=== PATIENT | female | born 1930 | race Two or more races ===

== ENCOUNTER 2020-07-21 21:27 | Emergency (ER) | payer MEDICARE, OTHER ==
[~2020-07-21] VITALS: Ht 165.1 cm; Wt 53.0 kg
[~2020-07-21 21:27] MED LIST: AMLO5TAB88 PO; CLON-457 PO; QUET100T PO; TRAM50TA3 PO
[2020-07-21] MEDS ORDERED: SODIUM CHLORIDE 0.9% 1,000 ML IV ONE (22:45)
[2020-07-21 23:43] LABS: BASOPHILS % 0.5 % (0.0-2.0); EOSINOPHILS % 0.3 % (0.0-5.0); HEMATOCRIT. 31.7 % (36.0-48.0); LYMPHOCYTES % 21.4 % (20.0-50.0); MEAN CORPUSCULAR HEMOGLOBIN 22.2 pg (28.0-32.0); MEAN CORPUSCULAR VOLUME 70.1 fL (81.0-99.0); MEAN PLATELET VOLUME 10.6 fl (7.4-10.4); MONOCYTES % 13.1 % (2.0-8.0); NEUTROPHILS % 64.7 % (40.0-76.0); PLATELET 141 x1000/uL (130-400); RED BLOOD CELL COUNT 4.52 mill/uL (4.2-5.4); RED CELL DISTRIBUTION WIDTH 17.2 % (11.6-14.6)
[2020-07-21 23:46] LABS: CHLORIDE 110 mEq/L (98-107)
[2020-07-22 01:19] VITALS: BP 137/66
== END 2020-07-22 01:22 | disposition home or self-care (01) ==
LOC: ER 21:27
DX: I95.9 Hypotension, unspecified (principal); E86.0 Dehydration; I10 Essential (primary) hypertension; R53.1 Weakness; F03.90 Unspecified dementia, unspecified severity, without behavioral disturbance, psychotic disturbance, mood disturbance, and anxiety
CPT/HCPCS: 36415; 71045; 80053; 82962; 83605; 83880; 84484; 85025; 85610; 93005; 96360; 99285; J7030

== ENCOUNTER 2020-07-23 09:23 | Inpatient (IN) | payer MEDICARE, OTHER ==
[2020-07-23] VITALS (19 sets, daily range): BP systolic 123–184; BP diastolic 49–123
[~2020-07-23] VITALS: Ht 152.4 cm; Wt 68.5 kg
[2020-07-23] MEDS ORDERED: MORPHINE SULFATE 4 MG/ML CPJ (NOT FOR IM USE) IV STA (10:22)
[2020-07-23] MEDS ORDERED: ONDANSETRON HCL 4MG/2ML INJ IV STA (10:22)
[2020-07-23] MEDS ORDERED: SODIUM CHLORIDE 0.9% 1,000 ML IV ONE (10:30)
[2020-07-23 10:32] LABS: BASOPHILS % 0.5 % (0.0-2.0); EOSINOPHILS % 0.2 % (0.0-5.0); HEMATOCRIT. 42.1 % (36.0-48.0); HEMOGLOBIN. 13.5 g/dL (12.0-16.0); LYMPHOCYTES % 16.8 % (20.0-50.0); MEAN CORPUSCULAR HEMOGLOBIN 22.2 pg (28.0-32.0); MEAN CORPUSCULAR VOLUME 69.4 fL (81.0-99.0); MEAN PLATELET VOLUME 11.1 fl (7.4-10.4); MONOCYTES % 5.8 % (2.0-8.0); NEUTROPHILS % 76.7 % (40.0-76.0); PLATELET 213 x1000/uL (130-400); RED BLOOD CELL COUNT 6.07 mill/uL (4.2-5.4); RED CELL DISTRIBUTION WIDTH 17.2 % (11.6-14.6)
[2020-07-23 10:34] LABS: CHLORIDE 98 mEq/L (98-107)
[2020-07-23 11:20] LABS: PARTIAL THROMBOPLASTIN TIME 27.6 sec (23.4-31.0); PROTHROMBIN TIME 10.8 sec (9.6-11.0)
[2020-07-23 11:40] LABS: PLATELET ESTIMATE NORMAL
[2020-07-23] MEDS ORDERED: LEVOFLOXACIN 750MG PREMIX 150 ML IV ONE (13:30)
[2020-07-23] MEDS ORDERED: METRONIDAZOLE 500 MG PREMIX 100 ML IV ONE (13:30)
[2020-07-23] MEDS ORDERED: MORPHINE SULFATE 4 MG/ML CPJ (NOT FOR IM USE) IV ONE (14:30)
[2020-07-23] MEDS: DOCUSATE SODIUM 250MG CAPSULE PO SCH (14:45)
[2020-07-23] MEDS ORDERED: BISACODYL 10MG SUPP PR PRN (14:45)
[2020-07-23] MEDS ORDERED: MORPHINE SULFATE 2 MG/ML CPJ (NOT FOR IM USE) IV PRN (14:45)
[2020-07-23] MEDS ORDERED: OMEPRAZOLE 20MG CAPSULE EXTENDED RELEASE PO SCH (14:45)
[2020-07-23] MEDS ORDERED: BISACODYL 10MG SUPP PR NR (14:45)
[2020-07-23] MEDS ORDERED: DEXT 5%/0.9% NACL 1,000 ML IV SCH (14:45)
[2020-07-23] MEDS: LOSARTAN POTASSIUM 100 MG TABLET PO SCH (14:45)
[2020-07-23] MEDS ORDERED: CLONIDINE 0.1MG TABLET PO PRN (14:45)
[2020-07-23] MEDS: RISPERIDONE 0.5MG TABLET PO SCH (15:30)
[2020-07-23] MEDS: AMLODIPINE 10MG TABLET PO SCH (15:32)
[2020-07-23 15:46] LABS: CLARITY URINE CLOUDY (CLEAR); COLOR URINE YELLOW (YELLOW); KETONES URINE NEGATIVE (NEGATIVE); LEUKOCYTE ESTERASE URINE 2+ (NEGATIVE); NITRITE URINE NEGATIVE (NEGATIVE); OCCULT BLOOD URINE 2+ (NEGATIVE); PROTEIN URINE 2+ (NEGATIVE); SPECIFIC GRAVITY URINE 1.013 (1.005-1.030); UROBILINOGEN URINE 0.2 E.U./dL (0.2-1.0)
[2020-07-23] MEDS ORDERED: NICARDIPINE 50 MG in SODIUM CHLORIDE 0.9% 230 ML IV PRN (17:15)
[2020-07-23] MEDS: DEXT 5%/LACTATED RINGERS 1,000 ML IV SCH ×2 (17:28→21:47)
[2020-07-23] MEDS: POLYETHYLENE GLYCOL 3350 (17GM) 1 DOSE PACK PO SCH (17:45)
[2020-07-23] MEDS: HYDRALAZINE HCL 100MG TABLET PO SCH (18:14)
[2020-07-23] MEDS: DEXAMETHASONE 4MG/ML 1ML VIAL IV SCH ×2 (18:15→23:44)
[2020-07-23] MEDS ORDERED: NICARDIPINE 100 MG in SODIUM CHLORIDE 0.9% 60 ML IV PRN ×2 (18:30→21:15)
[2020-07-23] MEDS: NICARDIPINE 100 MG in SODIUM CHLORIDE 0.9% 60 ML IV PRN (21:48)
[2020-07-23] MEDS: METRONIDAZOLE 500 MG PREMIX 100 ML IV SCH (22:02)
[2020-07-24] VITALS (87 sets, daily range): BP systolic 104–151; BP diastolic 45–101
[2020-07-24] MEDS: HYDRALAZINE HCL 100MG TABLET PO SCH ×3 (01:24→17:11)
[2020-07-24] MEDS: DEXAMETHASONE 4MG/ML 1ML VIAL IV SCH ×3 (05:11→17:14)
[2020-07-24] MEDS: METRONIDAZOLE 500 MG PREMIX 100 ML IV SCH ×3 (05:42→21:42)
[2020-07-24 05:45] LABS: HEMATOCRIT. 36.7 % (36.0-48.0); HEMOGLOBIN. 11.3 g/dL (12.0-16.0); MEAN CORPUSCULAR HEMOGLOBIN 21.5 pg (28.0-32.0); MEAN CORPUSCULAR VOLUME 69.6 fL (81.0-99.0); MEAN PLATELET VOLUME 9.7 fl (7.4-10.4); PLATELET 190 x1000/uL (130-400); RED BLOOD CELL COUNT 5.27 mill/uL (4.2-5.4); RED CELL DISTRIBUTION WIDTH 16.9 % (11.6-14.6)
[2020-07-24 05:50] LABS: CHLORIDE 101 mEq/L (98-107)
[2020-07-24 05:53] LABS: INR 1.1; PARTIAL THROMBOPLASTIN TIME 26.4 sec (23.4-31.0); PROTHROMBIN TIME 11.3 sec (9.6-11.0)
[2020-07-24] MEDS ORDERED: BACITRACIN 15GM TUBE TOP ONE (06:28)
[2020-07-24] MEDS ORDERED: BACITRACIN 50,000 UNITS/VIAL ONE ×2 (06:28→06:29)
[2020-07-24] MEDS ORDERED: THROMBIN (BOVINE) 5000 UNITS/VIAL TOP ONE (06:28)
[2020-07-24] MEDS ORDERED: SODIUM CHLORIDE 0.9% 10ML VIAL ONE ×2 (07:56→08:01)
[2020-07-24] MEDS ORDERED: EPHEDRINE SULFATE 50MG/ML VIAL ONE (07:56)
[2020-07-24] MEDS ORDERED: LIDOCAINE HCL/PF 1% 10 MG/ML 5ML VIAL ONE (07:56)
[2020-07-24] MEDS ORDERED: FENTANYL CITRATE/PF 50MCG/ML 2ML VIAL ONE (07:56)
[2020-07-24] MEDS ORDERED: DEXAMETHASONE 4MG/ML 1ML VIAL ONE (07:56)
[2020-07-24] MEDS ORDERED: PROPOFOL 200MG/20ML VIAL IV ONE (07:56)
[2020-07-24] MEDS ORDERED: ROCURONIUM BROMIDE 10MG/ML VIAL 5ML IV ONE ×2 (07:56→09:33)
[2020-07-24] MEDS ORDERED: CEFAZOLIN SODIUM 1000MG/VIAL ONE (07:56)
[2020-07-24] MEDS ORDERED: PHENYLEPHRINE HCL 10 MG/ML 1ML (IV VIAL) IV ONE (07:57)
[2020-07-24] MEDS ORDERED: ONDANSETRON HCL 4MG/2ML INJ ONE (08:00)
[2020-07-24] MEDS ORDERED: LIDOCAINE HCL 2% JELLY 5ML ONE (08:27)
[2020-07-24] MEDS ORDERED: DEXT 5%/LACTATED RINGERS 1,000 ML IV SCH (08:45)
[2020-07-24] MEDS: DOCUSATE SODIUM 250MG CAPSULE PO SCH (09:00)
[2020-07-24] MEDS: LOSARTAN POTASSIUM 100 MG TABLET PO SCH (09:00)
[2020-07-24] MEDS: POLYETHYLENE GLYCOL 3350 (17GM) 1 DOSE PACK PO SCH (09:00)
[2020-07-24] MEDS: AMLODIPINE 10MG TABLET PO SCH (09:00)
[2020-07-24] MEDS: RISPERIDONE 0.5MG TABLET PO SCH (09:00)
[2020-07-24 11:34] LABS: PLATELET ESTIMATE NORMAL
[2020-07-24] MEDS ORDERED: LEVOFLOXACIN 500MG PREMIX 100 ML IV SCH ×2 (12:00→13:30)
[2020-07-24] MEDS: PANTOPRAZOLE SODIUM 40 MG/VIAL IV SCH (12:32)
[2020-07-24] MEDS: DEXT 5%/LACTATED RINGERS 1,000 ML IV SCH (12:33)
[2020-07-24 13:04] LABS: BG CARBOXYHEMOGLOBIN 0.1 % (0.5-1.5); BG DEOXYHEMOGLOBIN 0.8 % (0.0-5.0); BG FRACTION INSPIRED OXYGEN 40; BG HCO3 ACT 22.2 mmol/L (22.0-26.0); BG METHEMOGLOBIN 0.3 % (0.0-1.5); BG OXYGEN SATURATION 99.2 % (92.0-98.5); BG OXYHEMOGLOBIN 98.8 % (94.0-97.0); BG PCO2 28.2 mmHg (35.0-45.0); BG PH 7.514 (7.350-7.450); BG PO2 193.4 mmHg (75.0-100.0); BG SAMPLE SITE RIGHT RADIAL; BG TOTAL HEMOGLOBIN 10.6 g/dL (12.0-18.0); BG VENT MODE VENT - AC
[2020-07-24] MEDS ORDERED: CEFAZOLIN SODIUM 1000MG/VIAL IV SCH (14:00)
[2020-07-24] MEDS: CEFAZOLIN 1000MG PREMIX 50 ML IV SCH ×2 (15:15→21:41)
[2020-07-24] MEDS: MORPHINE SULFATE 2 MG/ML CPJ (NOT FOR IM USE) IV PRN (17:15)
[2020-07-24] MEDS: PROPOFOL 10MG/ML 100ML 100 ML IV PRN (18:33)
[2020-07-25] VITALS (94 sets, daily range): BP systolic 100–150; BP diastolic 44–108
[2020-07-25] MEDS: DEXAMETHASONE 4MG/ML 1ML VIAL IV SCH ×4 (01:09→17:21)
[2020-07-25] MEDS: DEXT 5%/LACTATED RINGERS 1,000 ML IV SCH ×3 (01:12→21:08)
[2020-07-25] MEDS: HYDRALAZINE HCL 100MG TABLET PO SCH ×3 (01:15→17:21)
[2020-07-25] MEDS: MORPHINE SULFATE 2 MG/ML CPJ (NOT FOR IM USE) IV PRN ×2 (01:22→21:00)
[2020-07-25] MEDS: NICARDIPINE 100 MG in SODIUM CHLORIDE 0.9% 60 ML IV PRN ×3 (02:01→23:40)
[2020-07-25] MEDS: CEFAZOLIN 1000MG PREMIX 50 ML IV SCH ×3 (05:13→21:00)
[2020-07-25] MEDS: METRONIDAZOLE 500 MG PREMIX 100 ML IV SCH ×3 (05:13→21:00)
[2020-07-25 05:36] LABS: HEMATOCRIT. 30.3 % (36.0-48.0); HEMOGLOBIN. 9.5 g/dL (12.0-16.0); MEAN CORPUSCULAR HEMOGLOBIN 21.5 pg (28.0-32.0); MEAN CORPUSCULAR VOLUME 68.3 fL (81.0-99.0); MEAN PLATELET VOLUME 9.7 fl (7.4-10.4); PLATELET 231 x1000/uL (130-400); RED BLOOD CELL COUNT 4.43 mill/uL (4.2-5.4); RED CELL DISTRIBUTION WIDTH 16.8 % (11.6-14.6)
[2020-07-25 05:45] LABS: CHLORIDE 104 mEq/L (98-107)
[2020-07-25 08:09] LABS: PLATELET ESTIMATE NORMAL
[2020-07-25 08:34] LABS: BG BASE EXCESS -1.6 mmol/L (-2.0-2.0); BG CARBOXYHEMOGLOBIN 0.3 % (0.5-1.5); BG DEOXYHEMOGLOBIN 0.6 % (0.0-5.0); BG FRACTION INSPIRED OXYGEN 40; BG HCO3 ACT 20.8 mmol/L (22.0-26.0); BG METHEMOGLOBIN 0.3 % (0.0-1.5); BG OXYGEN SATURATION 99.4 % (92.0-98.5); BG OXYHEMOGLOBIN 98.8 % (94.0-97.0); BG PCO2 27.6 mmHg (35.0-45.0); BG PH 7.495 (7.350-7.450); BG PO2 223.7 mmHg (75.0-100.0); BG SAMPLE SITE RIGHT BRACHIAL; BG VENT MODE VENT - AC
[2020-07-25] MEDS: DOCUSATE SODIUM 250MG CAPSULE PO SCH (09:00)
[2020-07-25] MEDS: POLYETHYLENE GLYCOL 3350 (17GM) 1 DOSE PACK PO SCH (09:00)
[2020-07-25] MEDS: LOSARTAN POTASSIUM 100 MG TABLET PO SCH (09:00)
[2020-07-25] MEDS: AMLODIPINE 10MG TABLET PO SCH (09:00)
[2020-07-25] MEDS: RISPERIDONE 0.5MG TABLET PO SCH (09:00)
[2020-07-25] MEDS: PANTOPRAZOLE SODIUM 40 MG/VIAL IV SCH (10:00)
[2020-07-25] MEDS ORDERED: IPRATROPIUM/ALBUTEROL 0.5-3(2.5)MG/3ML NEB HHN PRN (10:30)
[2020-07-25] MEDS ORDERED: PROPOFOL 10MG/ML 100ML 100 ML IV PRN (10:30)
[2020-07-25] MEDS: PROPOFOL 10MG/ML 100ML 100 ML IV PRN ×2 (10:51→22:14)
[2020-07-25] MEDS: LEVOFLOXACIN 250MG PREMIX 50 ML IV SCH (14:06)
[2020-07-25] MEDS: IPRATROPIUM/ALBUTEROL 0.5-3(2.5)MG/3ML NEB HHN SCH (20:28)
[2020-07-26] VITALS (137 sets, daily range): BP systolic 101–149; BP diastolic 43–81
[2020-07-26] MEDS: HYDRALAZINE HCL 100MG TABLET PO SCH ×3 (02:00→18:07)
[2020-07-26] MEDS: IPRATROPIUM/ALBUTEROL 0.5-3(2.5)MG/3ML NEB HHN SCH ×4 (02:00→20:48)
[2020-07-26] MEDS: CEFAZOLIN 1000MG PREMIX 50 ML IV SCH (05:20)
[2020-07-26] MEDS: METRONIDAZOLE 500 MG PREMIX 100 ML IV SCH ×3 (05:20→21:03)
[2020-07-26 05:43] LABS: HEMATOCRIT. 24.2 % (36.0-48.0); HEMOGLOBIN. 7.9 g/dL (12.0-16.0); MEAN CORPUSCULAR HEMOGLOBIN 22.2 pg (28.0-32.0); MEAN CORPUSCULAR VOLUME 68.3 fL (81.0-99.0); MEAN PLATELET VOLUME 9.5 fl (7.4-10.4); PLATELET 195 x1000/uL (130-400); RED BLOOD CELL COUNT 3.54 mill/uL (4.2-5.4); RED CELL DISTRIBUTION WIDTH 16.5 % (11.6-14.6)
[2020-07-26 06:11] LABS: FOLIC ACID (FOLATE) SERUM 6.7 ng/mL (>5.38)
[2020-07-26] MEDS: PROPOFOL 10MG/ML 100ML 100 ML IV PRN ×2 (06:36→13:28)
[2020-07-26] MEDS: LOSARTAN POTASSIUM 100 MG TABLET PO SCH (09:00)
[2020-07-26] MEDS: RISPERIDONE 0.5MG TABLET PO SCH (09:00)
[2020-07-26] MEDS: AMLODIPINE 10MG TABLET PO SCH (09:00)
[2020-07-26] MEDS: PANTOPRAZOLE SODIUM 40 MG/VIAL IV SCH ×2 (09:20→21:04)
[2020-07-26] MEDS: LABETALOL 5MG/ML SYR 20 MG/4 ML SYRINGE IV PRN (09:21)
[2020-07-26] MEDS ORDERED: NITROPRUSSIDE 50 MG in SODIUM CHLORIDE 0.9% 250 ML IV PRN (09:30)
[2020-07-26 09:38] LABS: BG BASE EXCESS -6.8 mmol/L (-2.0-2.0); BG CARBOXYHEMOGLOBIN 0.3 % (0.5-1.5); BG DEOXYHEMOGLOBIN 1.1 % (0.0-5.0); BG FRACTION INSPIRED OXYGEN 40; BG METHEMOGLOBIN 0.5 % (0.0-1.5); BG OXYGEN SATURATION 98.9 % (92.0-98.5); BG OXYHEMOGLOBIN 98.1 % (94.0-97.0); BG PCO2 23.6 mmHg (35.0-45.0); BG PO2 188.5 mmHg (75.0-100.0); BG SAMPLE SITE RIGHT RADIAL; BG TOTAL HEMOGLOBIN 8.6 g/dL (12.0-18.0); BG VENT MODE VENT - AC
[2020-07-26] MEDS: LEVOFLOXACIN 250MG PREMIX 50 ML IV SCH (11:31)
[2020-07-26] MEDS: DEXT 5%/LACTATED RINGERS 1,000 ML IV SCH ×2 (11:56→15:15)
[2020-07-26 13:11] LABS: PLATELET ESTIMATE NORMAL
[2020-07-26 15:13] LABS: BG BASE EXCESS -3.1 mmol/L (-2.0-2.0); BG CARBOXYHEMOGLOBIN 0.3 % (0.5-1.5); BG DEOXYHEMOGLOBIN 0.7 % (0.0-5.0); BG FRACTION INSPIRED OXYGEN 40; BG HCO3 ACT 19.7 mmol/L (22.0-26.0); BG METHEMOGLOBIN 0.4 % (0.0-1.5); BG OXYGEN SATURATION 99.3 % (92.0-98.5); BG OXYHEMOGLOBIN 98.6 % (94.0-97.0); BG PCO2 27.5 mmHg (35.0-45.0); BG PH 7.473 (7.350-7.450); BG PO2 211.2 mmHg (75.0-100.0); BG SAMPLE SITE RIGHT RADIAL; BG TOTAL HEMOGLOBIN 9.6 g/dL (12.0-18.0); BG VENT MODE VENT - CPAP
[2020-07-26] MEDS: CEFTRIAXONE 1,000 MG in DEXTROSE 5% WATER 50 ML IV SCH (15:46)
[2020-07-26] MEDS: MORPHINE SULFATE 2 MG/ML CPJ (NOT FOR IM USE) IV PRN (17:10)
[2020-07-26] MEDS: METOCLOPRAMIDE HCL 10MG/2ML VIAL IV SCH ×2 (18:07→23:19)
[2020-07-27] VITALS (110 sets, daily range): BP systolic 97–158; BP diastolic 39–93
[2020-07-27] MEDS: PROPOFOL 10MG/ML 100ML 100 ML IV PRN ×2 (00:12→11:48)
[2020-07-27] MEDS: DEXT 5%/LACTATED RINGERS 1,000 ML IV SCH ×3 (01:00→20:49)
[2020-07-27] MEDS: HYDRALAZINE HCL 100MG TABLET PO SCH ×3 (03:05→18:02)
[2020-07-27] MEDS: IPRATROPIUM/ALBUTEROL 0.5-3(2.5)MG/3ML NEB HHN SCH ×4 (04:39→20:18)
[2020-07-27] MEDS: METRONIDAZOLE 500 MG PREMIX 100 ML IV SCH ×3 (05:21→20:49)
[2020-07-27] MEDS: METOCLOPRAMIDE HCL 10MG/2ML VIAL IV SCH ×3 (05:21→18:02)
[2020-07-27 05:57] LABS: CHLORIDE 110 mEq/L (98-107)
[2020-07-27 06:00] LABS: HEMATOCRIT. 27.9 % (36.0-48.0); HEMOGLOBIN. 8.9 g/dL (12.0-16.0); MEAN CORPUSCULAR HEMOGLOBIN 21.8 pg (28.0-32.0); MEAN CORPUSCULAR VOLUME 68.2 fL (81.0-99.0); MEAN PLATELET VOLUME 8.9 fl (7.4-10.4); PLATELET 261 x1000/uL (130-400); RED BLOOD CELL COUNT 4.09 mill/uL (4.2-5.4); RED CELL DISTRIBUTION WIDTH 16.9 % (11.6-14.6)
[2020-07-27] MEDS ORDERED: LIDOCAINE HCL 1% 20ML VIAL (Pyxis) INJ ONE (08:19)
[2020-07-27 09:00] LABS: BG BASE EXCESS -1.4 mmol/L (-2.0-2.0); BG CARBOXYHEMOGLOBIN 0.2 % (0.5-1.5); BG DEOXYHEMOGLOBIN 0.8 % (0.0-5.0); BG HCO3 ACT 20.9 mmol/L (22.0-26.0); BG METHEMOGLOBIN 0.5 % (0.0-1.5); BG OXYGEN SATURATION 99.2 % (92.0-98.5); BG OXYHEMOGLOBIN 98.5 % (94.0-97.0); BG PCO2 27.1 mmHg (35.0-45.0); BG PH 7.506 (7.350-7.450); BG PO2 221.4 mmHg (75.0-100.0); BG SAMPLE SITE RIGHT BRACHIAL; BG TOTAL HEMOGLOBIN 9.6 g/dL (12.0-18.0); BG VENT MODE VENT - AC
[2020-07-27] MEDS: LOSARTAN POTASSIUM 100 MG TABLET PO SCH (09:24)
[2020-07-27] MEDS: PANTOPRAZOLE SODIUM 40 MG/VIAL IV SCH ×2 (09:24→20:49)
[2020-07-27] MEDS: AMLODIPINE 10MG TABLET PO SCH (09:24)
[2020-07-27] MEDS: RISPERIDONE 0.5MG TABLET PO SCH (09:25)
[2020-07-27 10:59] LABS: PLATELET ESTIMATE NORMAL
[2020-07-27] MEDS: LEVOFLOXACIN 250MG PREMIX 50 ML IV SCH (11:48)
[2020-07-27] MEDS: CEFTRIAXONE 1,000 MG in DEXTROSE 5% WATER 50 ML IV SCH (15:18)
[2020-07-27] MEDS ORDERED: PROPOFOL 10MG/ML 100ML 100 ML IV PRN (19:45)
[2020-07-28] VITALS (102 sets, daily range): BP systolic 87–144; BP diastolic 38–89
[2020-07-28] MEDS: IPRATROPIUM/ALBUTEROL 0.5-3(2.5)MG/3ML NEB HHN SCH ×4 (00:52→20:36)
[2020-07-28] MEDS: HYDRALAZINE HCL 100MG TABLET PO SCH ×3 (02:27→17:27)
[2020-07-28] MEDS: METRONIDAZOLE 500 MG PREMIX 100 ML IV SCH ×2 (05:45→16:22)
[2020-07-28 05:48] LABS: HEMATOCRIT. 27.4 % (36.0-48.0); HEMOGLOBIN. 8.6 g/dL (12.0-16.0); MEAN CORPUSCULAR HEMOGLOBIN 21.7 pg (28.0-32.0); MEAN CORPUSCULAR VOLUME 69.1 fL (81.0-99.0); PLATELET 250 x1000/uL (130-400); RED BLOOD CELL COUNT 3.96 mill/uL (4.2-5.4)
[2020-07-28] MEDS: PANTOPRAZOLE SODIUM 40 MG/VIAL IV SCH ×2 (08:10→21:15)
[2020-07-28] MEDS: LOSARTAN POTASSIUM 100 MG TABLET PO SCH (08:10)
[2020-07-28] MEDS: AMLODIPINE 10MG TABLET PO SCH (08:10)
[2020-07-28] MEDS: RISPERIDONE 0.5MG TABLET PO SCH (08:10)
[2020-07-28] MEDS: MORPHINE SULFATE 2 MG/ML CPJ (NOT FOR IM USE) IV PRN (08:12)
[2020-07-28] MEDS: DEXT 5%/LACTATED RINGERS 1,000 ML IV SCH ×3 (08:13→23:54)
[2020-07-28 09:22] LABS: PLATELET ESTIMATE NORMAL
[2020-07-28] MEDS: METOPROLOL TARTRATE 50MG TABLET PO SCH ×2 (10:45→21:16)
[2020-07-28] MEDS: METOCLOPRAMIDE HCL 10MG/2ML VIAL IV SCH ×2 (13:10→17:26)
[2020-07-28] MEDS: PROPOFOL 10MG/ML 100ML 100 ML IV PRN (15:09)
[2020-07-28 15:20] LABS: BG BASE EXCESS 0.5 mmol/L (-2.0-2.0); BG CARBOXYHEMOGLOBIN 0.2 % (0.5-1.5); BG DEOXYHEMOGLOBIN 0.9 % (0.0-5.0); BG FRACTION INSPIRED OXYGEN 40; BG HCO3 ACT 24.5 mmol/L (22.0-26.0); BG METHEMOGLOBIN 0.2 % (0.0-1.5); BG OXYGEN SATURATION 99.1 % (92.0-98.5); BG OXYHEMOGLOBIN 98.7 % (94.0-97.0); BG PCO2 36.8 mmHg (35.0-45.0); BG PH 7.442 (7.350-7.450); BG PO2 200.4 mmHg (75.0-100.0); BG SAMPLE SITE RIGHT RADIAL; BG TOTAL HEMOGLOBIN 8.3 g/dL (12.0-18.0); BG TOTAL RESPIRATORY RATE 22 b/min; BG VENT MODE VENT - SIMV
[2020-07-28] MEDS: CEFTRIAXONE 1,000 MG in DEXTROSE 5% WATER 50 ML IV SCH (15:27)
[2020-07-28] MEDS ORDERED: PROPOFOL 10MG/ML 100ML 100 ML IV PRN (19:30)
[2020-07-29] VITALS (99 sets, daily range): BP systolic 80–142; BP diastolic 32–66
[2020-07-29] MEDS: METOCLOPRAMIDE HCL 10MG/2ML VIAL IV SCH ×5 (00:14→23:34)
[2020-07-29] MEDS: MORPHINE SULFATE 2 MG/ML CPJ (NOT FOR IM USE) IV PRN (00:15)
[2020-07-29] MEDS: IPRATROPIUM/ALBUTEROL 0.5-3(2.5)MG/3ML NEB HHN SCH ×4 (01:58→20:58)
[2020-07-29] MEDS: HYDRALAZINE HCL 100MG TABLET PO SCH ×3 (03:01→17:48)
[2020-07-29 05:36] LABS: HEMATOCRIT. 25.7 % (36.0-48.0); MEAN CORPUSCULAR HEMOGLOBIN 21.6 pg (28.0-32.0); MEAN CORPUSCULAR VOLUME 69.3 fL (81.0-99.0); PLATELET 189 x1000/uL (130-400); RED CELL DISTRIBUTION WIDTH 17.5 % (11.6-14.6)
[2020-07-29 05:40] LABS: CHLORIDE 115 mEq/L (98-107)
[2020-07-29] MEDS: LOSARTAN POTASSIUM 100 MG TABLET PO SCH (09:02)
[2020-07-29] MEDS: PANTOPRAZOLE SODIUM 40 MG/VIAL IV SCH ×2 (09:02→20:55)
[2020-07-29] MEDS: AMLODIPINE 10MG TABLET PO SCH (09:02)
[2020-07-29] MEDS: RISPERIDONE 0.5MG TABLET PO SCH (09:03)
[2020-07-29] MEDS: METOPROLOL TARTRATE 50MG TABLET PO SCH ×2 (09:03→20:55)
[2020-07-29] MEDS: DEXT 5%/LACTATED RINGERS 1,000 ML IV SCH ×2 (09:04→20:56)
[2020-07-29 09:06] LABS: BG BASE EXCESS 2.8 mmol/L (-2.0-2.0); BG CARBOXYHEMOGLOBIN 0.2 % (0.5-1.5); BG DEOXYHEMOGLOBIN 1.1 % (0.0-5.0); BG FRACTION INSPIRED OXYGEN 30; BG HCO3 ACT 26.2 mmol/L (22.0-26.0); BG METHEMOGLOBIN 0.3 % (0.0-1.5); BG OXYGEN SATURATION 98.9 % (92.0-98.5); BG OXYHEMOGLOBIN 98.4 % (94.0-97.0); BG PCO2 35.2 mmHg (35.0-45.0); BG PO2 155.1 mmHg (75.0-100.0); BG SAMPLE SITE RIGHT RADIAL; BG TOTAL HEMOGLOBIN 8.2 g/dL (12.0-18.0); BG VENT MODE VENT - SIMV
[2020-07-29 11:56] LABS: PLATELET ESTIMATE NORMAL
[2020-07-29] MEDS ORDERED: FUROSEMIDE 40MG/4ML VIAL IVP NR (12:30)
[2020-07-29] MEDS: CEFTRIAXONE 1,000 MG in DEXTROSE 5% WATER 50 ML IV SCH (14:56)
[2020-07-29 18:41] LABS: BG BASE EXCESS -0.7 mmol/L (-2.0-2.0); BG CARBOXYHEMOGLOBIN 0.2 % (0.5-1.5); BG FRACTION INSPIRED OXYGEN 40; BG HCO3 ACT 22.4 mmol/L (22.0-26.0); BG METHEMOGLOBIN 0.3 % (0.0-1.5); BG OXYHEMOGLOBIN 98.5 % (94.0-97.0); BG PCO2 30.9 mmHg (35.0-45.0); BG PH 7.478 (7.350-7.450); BG PO2 180.1 mmHg (75.0-100.0); BG SAMPLE SITE RIGHT RADIAL; BG TOTAL HEMOGLOBIN 8.6 g/dL (12.0-18.0); BG VENT MODE VENT - CPAP
[2020-07-30] VITALS (52 sets, daily range): BP systolic 92–134; BP diastolic 41–77
[2020-07-30] MEDS: HYDRALAZINE HCL 100MG TABLET PO SCH ×3 (01:27→21:10)
[2020-07-30] MEDS: IPRATROPIUM/ALBUTEROL 0.5-3(2.5)MG/3ML NEB HHN SCH ×4 (02:39→20:03)
[2020-07-30 05:58] LABS: HEMATOCRIT. 23.8 % (36.0-48.0); HEMOGLOBIN. 7.6 g/dL (12.0-16.0); MEAN CORPUSCULAR VOLUME 68.5 fL (81.0-99.0); MEAN PLATELET VOLUME 8.9 fl (7.4-10.4); PLATELET 180 x1000/uL (130-400); RED BLOOD CELL COUNT 3.48 mill/uL (4.2-5.4); RED CELL DISTRIBUTION WIDTH 17.3 % (11.6-14.6)
[2020-07-30] MEDS: METOCLOPRAMIDE HCL 10MG/2ML VIAL IV SCH ×4 (06:01→23:42)
[2020-07-30 06:15] LABS: CHLORIDE 112 mEq/L (98-107)
[2020-07-30] MEDS: PANTOPRAZOLE SODIUM 40 MG/VIAL IV SCH ×2 (08:44→21:10)
[2020-07-30] MEDS: METOPROLOL TARTRATE 50MG TABLET PO SCH ×2 (08:45→21:10)
[2020-07-30] MEDS: RISPERIDONE 0.5MG TABLET PO SCH (08:45)
[2020-07-30] MEDS: AMLODIPINE 10MG TABLET PO SCH (08:45)
[2020-07-30] MEDS: LOSARTAN POTASSIUM 100 MG TABLET PO SCH (08:45)
[2020-07-30] MEDS: DEXT 5%/LACTATED RINGERS 1,000 ML IV SCH (09:15)
[2020-07-30] MEDS ORDERED: DOCUSATE SODIUM 250MG CAPSULE PO SCH (10:15)
[2020-07-30] MEDS: LACTULOSE 20G/30ML UDC PO SCH (10:15)
[2020-07-30] MEDS ORDERED: LACTULOSE 20G/30ML UDC PO PRN (10:15)
[2020-07-30] MEDS ORDERED: RACEPINEPHRINE 2.25% 0.5ML NEB VIAL HHN PRN (11:00)
[2020-07-30 11:03] LABS: PLATELET ESTIMATE NORMAL
[2020-07-30] MEDS: DOCUSATE SODIUM SUGAR FREE 100MG/10ML UDC NG SCH (11:17)
[2020-07-30] MEDS ORDERED: LACTULOSE 20G/30ML UDC PO SCH (14:15)
[2020-07-30] MEDS: MORPHINE SULFATE 2 MG/ML CPJ (NOT FOR IM USE) IV PRN (15:43)
[2020-07-30] MEDS: CEFTRIAXONE 1,000 MG in DEXTROSE 5% WATER 50 ML IV SCH (16:01)
[2020-07-31] VITALS (40 sets, daily range): BP systolic 92–140; BP diastolic 36–68
[2020-07-31] MEDS: IPRATROPIUM/ALBUTEROL 0.5-3(2.5)MG/3ML NEB HHN SCH ×4 (02:05→22:44)
[2020-07-31] MEDS: METOCLOPRAMIDE HCL 10MG/2ML VIAL IV SCH ×4 (05:27→23:22)
[2020-07-31] MEDS: HYDRALAZINE HCL 100MG TABLET PO SCH ×3 (05:28→21:45)
[2020-07-31 05:47] LABS: HEMOGLOBIN. 7.6 g/dL (12.0-16.0); PLATELET 192 x1000/uL (130-400); RED BLOOD CELL COUNT 3.48 mill/uL (4.2-5.4); RED CELL DISTRIBUTION WIDTH 17.6 % (11.6-14.6)
[2020-07-31 06:01] LABS: CHLORIDE 113 mEq/L (98-107)
[2020-07-31 07:39] LABS: NUCLEATED RED BLOOD CELLS 1 /100 WBC
[2020-07-31 07:40] LABS: PLATELET ESTIMATE NORMAL
[2020-07-31] MEDS: METOPROLOL TARTRATE 50MG TABLET PO SCH (08:01)
[2020-07-31] MEDS: RISPERIDONE 0.5MG TABLET PO SCH (08:01)
[2020-07-31] MEDS: PANTOPRAZOLE SODIUM 40 MG/VIAL IV SCH ×2 (08:01→20:13)
[2020-07-31] MEDS: LOSARTAN POTASSIUM 100 MG TABLET PO SCH (08:01)
[2020-07-31] MEDS: DOCUSATE SODIUM SUGAR FREE 100MG/10ML UDC NG SCH (08:02)
[2020-07-31] MEDS: AMLODIPINE 10MG TABLET PO SCH (08:02)
[2020-07-31] MEDS: HYDROCODONE/ACETAMINOPHEN 5/325MG TABLET PO PRN (14:21)
[2020-08-01] VITALS (17 sets, daily range): BP systolic 99–168; BP diastolic 38–82
[2020-08-01] MEDS: HYDROCODONE/ACETAMINOPHEN 5/325MG TABLET PO PRN ×2 (02:32→09:35)
[2020-08-01] MEDS: IPRATROPIUM/ALBUTEROL 0.5-3(2.5)MG/3ML NEB HHN SCH ×4 (02:58→20:41)
[2020-08-01] MEDS: METOCLOPRAMIDE HCL 10MG/2ML VIAL IV SCH ×3 (06:19→17:47)
[2020-08-01] MEDS: HYDRALAZINE HCL 100MG TABLET PO SCH ×3 (06:20→22:21)
[2020-08-01 07:07] LABS: BASOPHILS % 0.2 % (0.0-2.0); EOSINOPHILS % 0.5 % (0.0-5.0); HEMATOCRIT. 23.8 % (36.0-48.0); HEMOGLOBIN. 7.5 g/dL (12.0-16.0); LYMPHOCYTES % 8.7 % (20.0-50.0); MEAN CORPUSCULAR HEMOGLOBIN 21.8 pg (28.0-32.0); MEAN PLATELET VOLUME 8.8 fl (7.4-10.4); MONOCYTES % 12.4 % (2.0-8.0); NEUTROPHILS % 78.2 % (40.0-76.0); PLATELET 188 x1000/uL (130-400); RED BLOOD CELL COUNT 3.46 mill/uL (4.2-5.4); RED CELL DISTRIBUTION WIDTH 17.1 % (11.6-14.6)
[2020-08-01 07:45] LABS: CHLORIDE 115 mEq/L (98-107)
[2020-08-01] MEDS: PANTOPRAZOLE SODIUM 40 MG/VIAL IV SCH ×2 (09:17→22:17)
[2020-08-01] MEDS: LOSARTAN POTASSIUM 50 MG TABLET PO SCH (09:18)
[2020-08-01] MEDS: RISPERIDONE 0.5MG TABLET PO SCH (09:18)
[2020-08-01] MEDS: DOCUSATE SODIUM SUGAR FREE 100MG/10ML UDC NG SCH (09:18)
[2020-08-01] MEDS ORDERED: SODIUM POLYSTYRENE SULFONATE 15 G/60 ML BOT NG NR (12:30)
[2020-08-01] MEDS: SODIUM CHLORIDE 0.45% 1,000 ML IV SCH (13:27)
[2020-08-01] MEDS: METOPROLOL TARTRATE 25MG TABLET PO SCH ×3 (13:45→22:17)
[2020-08-01] MEDS ORDERED: POLYETHYLENE GLYCOL 3350 (17GM) 1 DOSE PACK NG PRN (14:00)
[2020-08-01] MEDS ORDERED: SORBITOL 70% SOLN 30ML PO SCH ×2 (17:00→21:00)
[2020-08-01] MEDS: IRON SUCROSE COMPLEX 100 MG/5 ML ML IV SCH (17:47)
[2020-08-01] MEDS: LABETALOL 5MG/ML SYR 20 MG/4 ML SYRINGE IV PRN (18:32)
[2020-08-01 20:14] LABS: HEMATOCRIT 29.4 % (36.0-48.0); HEMOGLOBIN 9.5 g/dL (12.0-16.0)
[2020-08-01] MEDS: SENNOSIDES/DOCUSATE SOD 8.6/50MG TABLET NG SCH (22:17)
[2020-08-02] VITALS (12 sets, daily range): BP systolic 124–162; BP diastolic 55–93
[2020-08-02] MEDS ORDERED: SORBITOL 70% SOLN 30ML PO SCH ×2 (01:00→05:00)
[2020-08-02] MEDS: METOCLOPRAMIDE HCL 10MG/2ML VIAL IV SCH ×5 (01:00→23:15)
[2020-08-02] MEDS: IPRATROPIUM/ALBUTEROL 0.5-3(2.5)MG/3ML NEB HHN SCH ×3 (02:43→21:16)
[2020-08-02] MEDS: HYDRALAZINE HCL 100MG TABLET PO SCH ×3 (05:25→23:15)
[2020-08-02] MEDS: SODIUM CHLORIDE 0.45% 1,000 ML IV SCH (08:30)
[2020-08-02 08:51] LABS: CHLORIDE 125 mEq/L (98-107)
[2020-08-02 08:52] LABS: HEMATOCRIT. 30.5 % (36.0-48.0); HEMOGLOBIN. 9.8 g/dL (12.0-16.0); MEAN CORPUSCULAR HEMOGLOBIN 23.2 pg (28.0-32.0); MEAN CORPUSCULAR VOLUME 72.3 fL (81.0-99.0); MEAN PLATELET VOLUME 8.5 fl (7.4-10.4); PLATELET 213 x1000/uL (130-400); RED BLOOD CELL COUNT 4.21 mill/uL (4.2-5.4); RED CELL DISTRIBUTION WIDTH 19.4 % (11.6-14.6)
[2020-08-02] MEDS: DOCUSATE SODIUM SUGAR FREE 100MG/10ML UDC NG SCH (09:00)
[2020-08-02] MEDS: LOSARTAN POTASSIUM 50 MG TABLET PO SCH (09:00)
[2020-08-02 09:27] LABS: PLATELET ESTIMATE NORMAL
[2020-08-02] MEDS: METOPROLOL TARTRATE 25MG TABLET PO SCH ×2 (09:54→23:15)
[2020-08-02 10:03] LABS: PROTHROMBIN TIME 10.6 sec (9.6-11.0)
[2020-08-02] MEDS: PANTOPRAZOLE SODIUM 40 MG/VIAL IV SCH ×2 (10:17→23:14)
[2020-08-02] MEDS: IRON SUCROSE COMPLEX 100 MG/5 ML ML IV SCH (10:17)
[2020-08-02] MEDS: METOPROLOL TARTRATE 5MG/5ML VIAL IV PRN (12:58)
[2020-08-02 21:09] LABS: CHLORIDE 126 mEq/L (98-107)
[2020-08-02] MEDS: SENNOSIDES/DOCUSATE SOD 8.6/50MG TABLET NG SCH (23:14)
[2020-08-02] MEDS: DEXTROSE 5% WATER 1,000 ML IV SCH (23:14)
[2020-08-03] VITALS (11 sets, daily range): BP systolic 114–168; BP diastolic 53–119
[2020-08-03] MEDS: IPRATROPIUM/ALBUTEROL 0.5-3(2.5)MG/3ML NEB HHN SCH ×4 (02:42→20:05)
[2020-08-03] MEDS: METOCLOPRAMIDE HCL 10MG/2ML VIAL IV SCH ×3 (05:26→18:45)
[2020-08-03] MEDS: HYDRALAZINE HCL 100MG TABLET PO SCH ×3 (05:28→21:13)
[2020-08-03 05:44] LABS: HEMATOCRIT. 28.6 % (36.0-48.0); MEAN CORPUSCULAR HEMOGLOBIN 23.1 pg (28.0-32.0); MEAN CORPUSCULAR VOLUME 73.5 fL (81.0-99.0); MEAN PLATELET VOLUME 8.6 fl (7.4-10.4); PLATELET 178 x1000/uL (130-400); RED BLOOD CELL COUNT 3.89 mill/uL (4.2-5.4); RED CELL DISTRIBUTION WIDTH 20.1 % (11.6-14.6)
[2020-08-03] MEDS ORDERED: METOPROLOL TARTRATE 25MG TABLET PO NR (06:00)
[2020-08-03 06:02] LABS: CHLORIDE 122 mEq/L (98-107)
[2020-08-03] MEDS: PANTOPRAZOLE SODIUM 40 MG/VIAL IV SCH (08:46)
[2020-08-03] MEDS: IRON SUCROSE COMPLEX 100 MG/5 ML ML IV SCH (08:47)
[2020-08-03] MEDS: LOSARTAN POTASSIUM 50 MG TABLET PO SCH (09:00)
[2020-08-03] MEDS: DOCUSATE SODIUM SUGAR FREE 100MG/10ML UDC NG SCH (09:00)
[2020-08-03] MEDS: DEXTROSE 5% WATER 1,000 ML IV SCH (09:14)
[2020-08-03] MEDS: METOPROLOL TARTRATE 5MG/5ML VIAL IV PRN (09:29)
[2020-08-03] MEDS: LABETALOL 5MG/ML SYR 20 MG/4 ML SYRINGE IV PRN ×2 (09:59→16:09)
[2020-08-03] MEDS ORDERED: FENTANYL CITRATE/PF 50MCG/ML 2ML VIAL ONE (10:57)
[2020-08-03] MEDS ORDERED: MIDAZOLAM HCL 5 MG/5 ML VIAL ONE (10:57)
[2020-08-03] MEDS ORDERED: MIDAZOLAM HCL 5 MG/5 ML VIAL IV ONE (12:00)
[2020-08-03 14:22] LABS: PLATELET ESTIMATE NORMAL
[2020-08-03] MEDS ORDERED: METOPROLOL TARTRATE 25MG TABLET PO SCH (21:00)
[2020-08-03] MEDS: SENNOSIDES/DOCUSATE SOD 8.6/50MG TABLET NG SCH (21:12)
[2020-08-03] MEDS: METOPROLOL TARTRATE 25MG TABLET PO SCH (21:13)
[2020-08-04] VITALS (12 sets, daily range): BP systolic 98–133; BP diastolic 45–70
[2020-08-04] MEDS: METOCLOPRAMIDE HCL 10MG/2ML VIAL IV SCH ×5 (00:34→23:59)
[2020-08-04] MEDS: IPRATROPIUM/ALBUTEROL 0.5-3(2.5)MG/3ML NEB HHN SCH ×4 (02:14→21:05)
[2020-08-04] MEDS: HYDRALAZINE HCL 100MG TABLET PO SCH (05:33)
[2020-08-04 05:53] LABS: HEMATOCRIT. 29.3 % (36.0-48.0); HEMOGLOBIN. 9.3 g/dL (12.0-16.0); MEAN CORPUSCULAR HEMOGLOBIN 23.3 pg (28.0-32.0); MEAN CORPUSCULAR VOLUME 73.5 fL (81.0-99.0); MEAN PLATELET VOLUME 8.6 fl (7.4-10.4); PLATELET 159 x1000/uL (130-400); RED BLOOD CELL COUNT 3.99 mill/uL (4.2-5.4); RED CELL DISTRIBUTION WIDTH 20.7 % (11.6-14.6)
[2020-08-04] MEDS: DOCUSATE SODIUM SUGAR FREE 100MG/10ML UDC NG SCH (08:38)
[2020-08-04] MEDS: LOSARTAN POTASSIUM 50 MG TABLET PO SCH (08:38)
[2020-08-04] MEDS: IRON SUCROSE COMPLEX 100 MG/5 ML ML IV SCH (08:38)
[2020-08-04] MEDS: PANTOPRAZOLE SODIUM 40 MG/VIAL IV SCH (08:38)
[2020-08-04] MEDS: METOPROLOL TARTRATE 25MG TABLET PO SCH ×2 (08:38→21:53)
[2020-08-04] MEDS: HYDRALAZINE HCL 50MG TABLET PO SCH ×2 (14:09→21:45)
[2020-08-04] MEDS: DEXTROSE 5% WATER 1,000 ML IV SCH (17:31)
[2020-08-04] MEDS: SENNOSIDES/DOCUSATE SOD 8.6/50MG TABLET NG SCH (21:44)
[2020-08-04 21:50] LABS: PLATELET ESTIMATE NORMAL
[2020-08-05] VITALS (12 sets, daily range): BP systolic 99–139; BP diastolic 42–69
[2020-08-05] MEDS: IPRATROPIUM/ALBUTEROL 0.5-3(2.5)MG/3ML NEB HHN SCH ×4 (01:34→21:25)
[2020-08-05] MEDS: ONDANSETRON HCL 4MG/2ML INJ IV PRN ×2 (03:27→21:58)
[2020-08-05] MEDS: HYDRALAZINE HCL 50MG TABLET PO SCH ×3 (05:51→21:57)
[2020-08-05] MEDS: METOCLOPRAMIDE HCL 10MG/2ML VIAL IV SCH ×3 (05:51→17:46)
[2020-08-05] MEDS: DEXTROSE 5% WATER 1,000 ML IV SCH (06:41)
[2020-08-05] MEDS: PANTOPRAZOLE SODIUM 40 MG/VIAL IV SCH (08:55)
[2020-08-05] MEDS: LOSARTAN POTASSIUM 50 MG TABLET PO SCH (08:55)
[2020-08-05] MEDS: DOCUSATE SODIUM SUGAR FREE 100MG/10ML UDC NG SCH (08:56)
[2020-08-05] MEDS: METOPROLOL TARTRATE 25MG TABLET PO SCH ×2 (08:58→21:57)
[2020-08-05] MEDS: IRON SUCROSE COMPLEX 100 MG/5 ML ML IV SCH (08:59)
[2020-08-05] MEDS: SENNOSIDES/DOCUSATE SOD 8.6/50MG TABLET NG SCH (21:57)
[2020-08-06] VITALS (12 sets, daily range): BP systolic 102–127; BP diastolic 49–63
[2020-08-06] MEDS: METOCLOPRAMIDE HCL 10MG/2ML VIAL IV SCH ×5 (00:30→23:57)
[2020-08-06] MEDS: DEXTROSE 5% WATER 1,000 ML IV SCH ×2 (00:31→21:49)
[2020-08-06] MEDS: IPRATROPIUM/ALBUTEROL 0.5-3(2.5)MG/3ML NEB HHN SCH ×4 (01:57→20:21)
[2020-08-06] MEDS: ONDANSETRON HCL 4MG/2ML INJ IV PRN (02:20)
[2020-08-06] MEDS: ACETAMINOPHEN 325MG TABLET PO PRN (02:20)
[2020-08-06] MEDS: HYDRALAZINE HCL 50MG TABLET PO SCH ×3 (05:15→21:50)
[2020-08-06 06:13] LABS: BASOPHILS % 0.4 % (0.0-2.0); EOSINOPHILS % 0.6 % (0.0-5.0); HEMATOCRIT. 27.3 % (36.0-48.0); HEMOGLOBIN. 8.7 g/dL (12.0-16.0); LYMPHOCYTES % 11.2 % (20.0-50.0); MEAN CORPUSCULAR HEMOGLOBIN 23.3 pg (28.0-32.0); MEAN CORPUSCULAR VOLUME 73.4 fL (81.0-99.0); MONOCYTES % 9.5 % (2.0-8.0); NEUTROPHILS % 78.3 % (40.0-76.0); PLATELET 146 x1000/uL (130-400); RED BLOOD CELL COUNT 3.72 mill/uL (4.2-5.4); RED CELL DISTRIBUTION WIDTH 21.8 % (11.6-14.6)
[2020-08-06 06:34] LABS: CHLORIDE 112 mEq/L (98-107)
[2020-08-06] MEDS: DOCUSATE SODIUM SUGAR FREE 100MG/10ML UDC NG SCH (08:25)
[2020-08-06] MEDS: PANTOPRAZOLE SODIUM 40 MG/VIAL IV SCH (08:25)
[2020-08-06] MEDS: METOPROLOL TARTRATE 25MG TABLET PO SCH (08:26)
[2020-08-06] MEDS: LOSARTAN POTASSIUM 50 MG TABLET PO SCH (08:26)
[2020-08-06] MEDS: SENNOSIDES/DOCUSATE SOD 8.6/50MG TABLET NG SCH (21:49)
[2020-08-07] VITALS (13 sets, daily range): BP systolic 103–139; BP diastolic 50–65
[2020-08-07] MEDS: METOPROLOL TARTRATE 25MG TABLET PO SCH ×3 (00:02→21:00)
[2020-08-07] MEDS: IPRATROPIUM/ALBUTEROL 0.5-3(2.5)MG/3ML NEB HHN SCH ×4 (02:43→20:22)
[2020-08-07] MEDS: METOCLOPRAMIDE HCL 10MG/2ML VIAL IV SCH ×3 (06:21→18:13)
[2020-08-07 06:24] LABS: BASOPHILS % 0.4 % (0.0-2.0); EOSINOPHILS % 0.4 % (0.0-5.0); HEMATOCRIT. 26.5 % (36.0-48.0); HEMOGLOBIN. 8.6 g/dL (12.0-16.0); LYMPHOCYTES % 14.9 % (20.0-50.0); MEAN CORPUSCULAR HEMOGLOBIN 23.7 pg (28.0-32.0); MEAN CORPUSCULAR VOLUME 73.4 fL (81.0-99.0); MEAN PLATELET VOLUME 9.2 fl (7.4-10.4); MONOCYTES % 9.5 % (2.0-8.0); NEUTROPHILS % 74.8 % (40.0-76.0); PLATELET 150 x1000/uL (130-400); RED BLOOD CELL COUNT 3.61 mill/uL (4.2-5.4); RED CELL DISTRIBUTION WIDTH 22.3 % (11.6-14.6)
[2020-08-07] MEDS: HYDRALAZINE HCL 50MG TABLET PO SCH ×3 (06:26→23:07)
[2020-08-07] MEDS: DOCUSATE SODIUM SUGAR FREE 100MG/10ML UDC NG SCH (10:00)
[2020-08-07] MEDS: PANTOPRAZOLE SODIUM 40 MG/VIAL IV SCH (10:00)
[2020-08-07] MEDS: ACETAMINOPHEN 325MG TABLET PO PRN (10:01)
[2020-08-07] MEDS: LOSARTAN POTASSIUM 50 MG TABLET PO SCH (10:01)
[2020-08-07] MEDS: DEXTROSE 5% WATER 1,000 ML IV SCH (18:13)
[2020-08-07] MEDS: SENNOSIDES/DOCUSATE SOD 8.6/50MG TABLET NG SCH (21:00)
[2020-08-08] VITALS: BP 140/69
[2020-08-08] MEDS: METOCLOPRAMIDE HCL 10MG/2ML VIAL IV SCH ×4 (00:10→18:22)
[2020-08-08 04:00] VITALS: BP 170/68
[2020-08-08] MEDS: HYDRALAZINE HCL 50MG TABLET PO SCH ×3 (05:12→21:50)
[2020-08-08 06:09] LABS: BASOPHILS % 0.3 % (0.0-2.0); EOSINOPHILS % 0.3 % (0.0-5.0); HEMATOCRIT. 31.2 % (36.0-48.0); HEMOGLOBIN. 9.8 g/dL (12.0-16.0); LYMPHOCYTES % 12.1 % (20.0-50.0); MEAN CORPUSCULAR HEMOGLOBIN 23.4 pg (28.0-32.0); MEAN CORPUSCULAR VOLUME 74.7 fL (81.0-99.0); MEAN PLATELET VOLUME 9.6 fl (7.4-10.4); MONOCYTES % 10.1 % (2.0-8.0); NEUTROPHILS % 77.2 % (40.0-76.0); PLATELET 163 x1000/uL (130-400); PROTHROMBIN TIME 10.4 sec (9.6-11.0); RED BLOOD CELL COUNT 4.18 mill/uL (4.2-5.4); RED CELL DISTRIBUTION WIDTH 22.7 % (11.6-14.6)
[2020-08-08 06:22] LABS: CHLORIDE 110 mEq/L (98-107)
[2020-08-08 08:00] VITALS: BP 143/55
[2020-08-08] MEDS: METOPROLOL TARTRATE 25MG TABLET PO SCH ×2 (08:21→21:50)
[2020-08-08] MEDS: LOSARTAN POTASSIUM 50 MG TABLET PO SCH (08:21)
[2020-08-08] MEDS: PANTOPRAZOLE SODIUM 40 MG/VIAL IV SCH (08:22)
[2020-08-08] MEDS: DOCUSATE SODIUM SUGAR FREE 100MG/10ML UDC NG SCH (08:22)
[2020-08-08] MEDS ORDERED: SODIUM POLYSTYRENE SULFONATE 15 G/60 ML BOT PO NR (11:00)
[2020-08-08] MEDS ORDERED: CEFAZOLIN 1000MG PREMIX 50 ML IV ONE (11:00)
[2020-08-08 12:00] VITALS: BP 125/65
[2020-08-08 16:00] VITALS: BP 135/53
[2020-08-08] MEDS: DEXTROSE 5% WATER 1,000 ML IV SCH (18:22)
[2020-08-08 20:00] VITALS: BP 147/71
[2020-08-08] MEDS: SENNOSIDES/DOCUSATE SOD 8.6/50MG TABLET NG SCH (20:22)
[2020-08-09] VITALS: BP 130/69
[2020-08-09] MEDS: METOCLOPRAMIDE HCL 10MG/2ML VIAL IV SCH ×4 (00:14→17:31)
[2020-08-09] MEDS: IPRATROPIUM/ALBUTEROL 0.5-3(2.5)MG/3ML NEB HHN SCH ×4 (02:42→21:02)
[2020-08-09 04:00] VITALS: BP 127/62
[2020-08-09] MEDS: HYDRALAZINE HCL 50MG TABLET PO SCH ×3 (06:00→21:38)
[2020-08-09 07:54] LABS: HEMATOCRIT. 26.6 % (36.0-48.0); HEMOGLOBIN. 8.5 g/dL (12.0-16.0); MEAN CORPUSCULAR HEMOGLOBIN 23.9 pg (28.0-32.0); MEAN CORPUSCULAR VOLUME 74.4 fL (81.0-99.0); MEAN PLATELET VOLUME 10.2 fl (7.4-10.4); PLATELET 119 x1000/uL (130-400); RED BLOOD CELL COUNT 3.57 mill/uL (4.2-5.4); RED CELL DISTRIBUTION WIDTH 22.9 % (11.6-14.6)
[2020-08-09 08:00] VITALS: BP 143/63
[2020-08-09 09:00] LABS: CHLORIDE 109 mEq/L (98-107)
[2020-08-09] MEDS: DOCUSATE SODIUM SUGAR FREE 100MG/10ML UDC NG SCH (09:27)
[2020-08-09] MEDS: METOPROLOL TARTRATE 25MG TABLET PO SCH ×2 (09:27→21:38)
[2020-08-09] MEDS: LOSARTAN POTASSIUM 50 MG TABLET PO SCH (09:27)
[2020-08-09] MEDS: PANTOPRAZOLE SODIUM 40 MG/VIAL IV SCH (09:27)
[2020-08-09] MEDS: DEXTROSE 5% WATER 1,000 ML IV SCH ×2 (09:28→20:00)
[2020-08-09] MEDS ORDERED: TRAMADOL 50MG TABLET PO PRN (11:15)
[2020-08-09 12:00] VITALS: BP 99/44
[2020-08-09] MEDS ORDERED: CEFAZOLIN 1000MG PREMIX 50 ML IV SCH (14:30)
[2020-08-09 16:00] VITALS: BP 104/55
[2020-08-09 17:06] LABS: PROTHROMBIN TIME 10.7 sec (9.6-11.0)
[2020-08-09] MEDS ORDERED: MIDAZOLAM HCL 5 MG/5 ML VIAL IV PRN (17:29)
[2020-08-09] MEDS ORDERED: FENTANYL CITRATE/PF 50MCG/ML 2ML VIAL ONE (17:29)
[2020-08-09] MEDS ORDERED: MIDAZOLAM HCL 5 MG/5 ML VIAL ONE (17:29)
[2020-08-09 20:00] VITALS: BP 122/56
[2020-08-09] MEDS: SENNOSIDES/DOCUSATE SOD 8.6/50MG TABLET NG SCH (21:38)
[2020-08-10] VITALS: BP 104/48
[2020-08-10] MEDS: METOCLOPRAMIDE HCL 10MG/2ML VIAL IV SCH ×5 (00:09→23:07)
[2020-08-10] MEDS: IPRATROPIUM/ALBUTEROL 0.5-3(2.5)MG/3ML NEB HHN SCH ×4 (01:42→21:13)
[2020-08-10 04:00] VITALS: BP 104/46
[2020-08-10 07:34] LABS: PLATELET ESTIMATE SLIGHTLY DECREASED
[2020-08-10 08:00] VITALS: BP 117/51
[2020-08-10] MEDS: DOCUSATE SODIUM SUGAR FREE 100MG/10ML UDC NG SCH (09:47)
[2020-08-10] MEDS: HYDRALAZINE HCL 50MG TABLET PO SCH ×3 (09:48→23:05)
[2020-08-10] MEDS: PANTOPRAZOLE SODIUM 40 MG/VIAL IV SCH (09:48)
[2020-08-10] MEDS: LOSARTAN POTASSIUM 50 MG TABLET PO SCH (09:49)
[2020-08-10] MEDS: METOPROLOL TARTRATE 25MG TABLET PO SCH ×2 (09:49→23:05)
[2020-08-10 12:00] VITALS: BP 99/51
[2020-08-10 16:00] VITALS: BP 119/53
[2020-08-10 20:00] VITALS: BP 130/79
[2020-08-10] MEDS: SENNOSIDES/DOCUSATE SOD 8.6/50MG TABLET NG SCH (23:07)
[2020-08-11] VITALS (7 sets, daily range): BP systolic 106–143; BP diastolic 58–75
[2020-08-11] MEDS: IPRATROPIUM/ALBUTEROL 0.5-3(2.5)MG/3ML NEB HHN SCH ×3 (01:51→13:36)
[2020-08-11] MEDS: METOCLOPRAMIDE HCL 10MG/2ML VIAL IV SCH ×2 (06:27→12:23)
[2020-08-11] MEDS: HYDRALAZINE HCL 50MG TABLET PO SCH ×2 (06:27→16:01)
[2020-08-11] MEDS: METOPROLOL TARTRATE 25MG TABLET PO SCH (09:57)
[2020-08-11] MEDS: DOCUSATE SODIUM SUGAR FREE 100MG/10ML UDC NG SCH (09:57)
[2020-08-11] MEDS: PANTOPRAZOLE SODIUM 40 MG/VIAL IV SCH (09:57)
[2020-08-11] MEDS: DEXTROSE 5% WATER 1,000 ML IV SCH (09:57)
[2020-08-11] MEDS: LOSARTAN POTASSIUM 50 MG TABLET PO SCH (09:57)
== END 2020-08-11 18:45 | DRG 710 ==
LOC: ER 09:23 → MICUSO 13:24 → ENRESERV 19:10 → 5EST 07-31 18:10 → 7EST 08-08 00:33 → 5WST 08-08 18:56
PROVIDERS: ADMIT Internal Medicine; ATTEND Internal Medicine
PROC: 0RG20J1 Fusion of 2 or more Cervical Vertebral Joints with Synthetic Substitute, Posterior Approach, Posterior Column, Open Approach (ICD-10-PCS; principal; 2020-07-24)
PROC: 5A1955Z Respiratory Ventilation, Greater than 96 Consecutive Hours (ICD-10-PCS; 2020-07-24)
PROC: 0RG40J1 Fusion of Cervicothoracic Vertebral Joint with Synthetic Substitute, Posterior Approach, Posterior Column, Open Approach (ICD-10-PCS; 2020-07-24)
PROC: 0RG60J1 Fusion of Thoracic Vertebral Joint with Synthetic Substitute, Posterior Approach, Posterior Column, Open Approach (ICD-10-PCS; 2020-07-24)
PROC: 0PS304Z Reposition Cervical Vertebra with Internal Fixation Device, Open Approach (ICD-10-PCS; 2020-07-24)
PROC: 0PS404Z Reposition Thoracic Vertebra with Internal Fixation Device, Open Approach (ICD-10-PCS; 2020-07-24)
PROC: 00NW0ZZ Release Cervical Spinal Cord, Open Approach (ICD-10-PCS; 2020-07-24)
PROC: 00NX0ZZ Release Thoracic Spinal Cord, Open Approach (ICD-10-PCS; 2020-07-24)
PROC: 0DB68ZX Excision of Stomach, Via Natural or Artificial Opening Endoscopic, Diagnostic (ICD-10-PCS; 2020-07-26)
PROC: 02HV33Z Insertion of Infusion Device into Superior Vena Cava, Percutaneous Approach (ICD-10-PCS; 2020-07-27)
PROC: 30233N1 Transfusion of Nonautologous Red Blood Cells into Peripheral Vein, Percutaneous Approach (ICD-10-PCS; 2020-08-01)
PROC: 0DBE8ZX Excision of Large Intestine, Via Natural or Artificial Opening Endoscopic, Diagnostic (ICD-10-PCS; 2020-08-03)
PROC: 0DH63UZ Insertion of Feeding Device into Stomach, Percutaneous Approach (ICD-10-PCS; 2020-08-09)
DX: A41.51 Sepsis due to Escherichia coli [E. coli] (principal); E43 Unspecified severe protein-calorie malnutrition; U07.1 COVID-19; J95.821 Acute postprocedural respiratory failure; S12.500A Unspecified displaced fracture of sixth cervical vertebra, initial encounter for closed fracture; S12.600A Unspecified displaced fracture of seventh cervical vertebra, initial encounter for closed fracture; G82.50 Quadriplegia, unspecified; J44.9 Chronic obstructive pulmonary disease, unspecified; K52.9 Noninfective gastroenteritis and colitis, unspecified; M43.12 Spondylolisthesis, cervical region; G95.20 Unspecified cord compression; E87.1 Hypo-osmolality and hyponatremia; F02.80 Dementia in other diseases classified elsewhere, unspecified severity, without behavioral disturbance, psychotic disturbance, mood disturbance, and anxiety; G30.9 Alzheimer's disease, unspecified; K57.32 Diverticulitis of large intestine without perforation or abscess without bleeding; K29.50 Unspecified chronic gastritis without bleeding; K83.1 Obstruction of bile duct; N13.6 Pyonephrosis; K59.00 Constipation, unspecified; K82.8 Other specified diseases of gallbladder; D72.810 Lymphocytopenia; R47.01 Aphasia; L89.156 Pressure-induced deep tissue damage of sacral region; S70.321A Blister (nonthermal), right thigh, initial encounter; J98.4 Other disorders of lung; B96.89 Other specified bacterial agents as the cause of diseases classified elsewhere; E87.70 Fluid overload, unspecified; S22.019A Unspecified fracture of first thoracic vertebra, initial encounter for closed fracture; W18.39XA Other fall on same level, initial encounter; D50.9 Iron deficiency anemia, unspecified; R13.10 Dysphagia, unspecified; K63.5 Polyp of colon; Z78.1 Physical restraint status; Z90.10 Acquired absence of unspecified breast and nipple; Z79.899 Other long term (current) drug therapy; Z68.29 Body mass index [BMI] 29.0-29.9, adult; Y92.009 Unspecified place in unspecified non-institutional (private) residence as the place of occurrence of the external cause; Y93.89 Activity, other specified; Y99.8 Other external cause status; I10 Essential (primary) hypertension
CPT/HCPCS: 36415; 36600; 71045; 72040; 72141; 74018; 74176; 76000; 76700; 76937; 78227; 80048; 80053; 80076; 81003; 82040; 82270; 82375; 82378; 82607; 82728; 82746; 82805; 83021; 83036; 83540; 83550; 83735; 83880; 84134; 84478; 84484; 85014; 85018; 85025; 85044; 85660; 86850; 86900; 86920; 87070; 87075; 87077; 87186; 87426; 87635; 88304; 88305; 88313; 92610; 93005; 93306; 93970; 94002; 94003; 94640; 96365; 96375; 97110; 97162; 97165; 97530; 99152; 99291; A6261; A9537; C1713; C1725; C9113; J0690; J0696; J1100; J1940; J1956; J2250; J2270; J2370; J2405; J2704; J2765; J3010; J3490; J7030; J7040; J7042; J7050; J7060; J7070; L0172; P9016; A4315; G0500

== ENCOUNTER → 2021-01-01 | Outpatient (CLI) | payer MEDICARE, OTHER | END | disposition home or self-care (01) | LOC: RAD 10:11 | PROVIDERS: ATTEND Neurological Surgery | DX: M41.82 Other forms of scoliosis, cervical region (principal); Z98.890 Other specified postprocedural states | CPT/HCPCS: 72050 ==

== ENCOUNTER → 2021-01-01 | Outpatient (CLI) | payer MEDICARE, OTHER | END | disposition home or self-care (01) | LOC: RAD 10:03 | PROVIDERS: ATTEND Internal Medicine | DX: J98.11 Atelectasis (principal); R05 Cough | CPT/HCPCS: 71046 ==